=== PATIENT | male | born 1990 | race Caucasian/White ===

== ENCOUNTER 2021-07-04 10:25 | Emergency (ER) | payer OTHER, SELFPAY ==
[2021-07-04 10:29] VITALS: BP 125/85; PULSE 100; RESP 18; TEMP 37.1; O2SAT 99; BMI 24.3
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
== END 2021-07-04 11:51 | disposition home or self-care (01) ==
PROVIDERS: Emergency Provider Emergency Medicine Emergency Medical Services; PCP Internal Medicine
DX: S80.01XA Contusion of right knee, initial encounter (principal); M54.50 Low back pain, unspecified; V43.52XA Car driver injured in collision with other type car in traffic accident, initial encounter; Y93.9 Activity, unspecified; Y92.410 Unspecified street and highway as the place of occurrence of the external cause; Y99.9 Unspecified external cause status
CPT/HCPCS: 99283

== ENCOUNTER 2022-03-17 15:00 | Outpatient (RCR) | payer OTHER, SELFPAY | END 2022-03-24 18:11 | disposition home or self-care (01) | LOC: HO.PT 15:00 | PROVIDERS: Visit Provider Orthopaedic Surgery Orthopaedic Trauma | DX: R60.0 Localized edema (principal); M25.561 Pain in right knee; Z98.890 Other specified postprocedural states | CPT/HCPCS: 97110; 97112; 97161; 97530 ==

== ENCOUNTER 2024-07-18 16:18 | Emergency (ER) | payer BC, SELFPAY ==
--- NOTE | ~2024-07-18 | XR_ITS ---
CLINICAL HISTORY: atraumatic, swelling 3 view left elbow Comparison: None Findings: No acute fracture. No dislocation. No significant arthritic changes. No erosions. No joint effusion. Soft tissue swelling/edema at the medial and posterior aspect of the visualized part of the arm and elbow. No radiopaque foreign body. IMPRESSION: 1. No acute osseous findings. 2. Medial and posterior soft tissue swelling/edema. This document has been electronically signed by: Mimi Ricci MD on 07/18/2024 18:12:47
[2024-07-18 17:17] VITALS: BP 118/67; PULSE 65; RESP 16; TEMP 36.9; O2SAT 99; BMI 23.2
--- NOTE | 2024-07-18 17:19 | ED_ITS ---
HPI - General Adult General Chief complaint: Extremity Problem Stated complaint: left arm swelling, dizziness Time Seen by Provider: 07/18/24 22:59 Source: patient Mode of arrival: ambulatory Limitations: no limitations History of Present Illness ED Provider: Dr. Parris Bradshaw HPI narrative: Patient comes to the emergency room complaining of a left elbow swelling that started today. Patient denies any injuries. Patient denies any pain. Patient states that it just looks swollen. Patient denies fever chills. Related Data Previous Rx's ?Medication ?Instructions ?Recorded ibuprofen 600 mg tablet 600 mg PO Q6H PRN pain #20 tabs 07/04/21 acetaminophen 500 mg tablet 500 mg PO Q6H PRN pain #20 tabs 07/18/24 Allergies Allergy/AdvReac Type Severity Reaction Status Date / Time ibuprofen Allergy Facial Verified 07/18/24 17:19 Swelling Review of Systems 2 Review of Systems: Constitutional : No Weight loss, No Fever, No Chills, No Night Sweats, No Fatigue, No Malaise ENT/Mouth : No Hearing loss, No Ear Pain, No Nasal Congestion, No Sinus Pain, No Hoarseness, No sore throat, No Rhinorrhea, No Swallowing Difficulty Eyes: No Eye Pain, No Swelling, No Redness, No Foreign Body, No Discharge, No Vision Changes Cardiovascular : No Chest Pain, No SOB, No Dyspnea on Exertion, No Orthopnea, No Edema, No Palpitations Respiratory : No Cough, No Sputum, No Wheezing, No Smoke Exposure, No Dyspnea Gastrointestinal : No Nausea, No Vomiting, No Diarrhea, No Constipation, No abdominal Pain, No Hematochezia, No Melena Genitourinary : no irregular bleeding, No Dysuria, No Urinary Frequency, No Hematuria, No Urinary Incontinence, No Urgency, No Flank Pain, No Urinary Flow Changes, No Hesitancy Musculoskeletal : No joint pain, complaining of left elbow swelling,No Myalgias Skin : No Skin Lesions, No rash Neuro : No Weakness, No Numbness, No Paresthesias, No Loss of Consciousness, No Dizziness, No Headache Psych : No Anxiety/Panic, No Depression, No SI/HI/AH/VH, No Social Issues, Heme/Lymph: No Bruising, No Bleeding,No Lymphadenopathy Endocrine : No Polyuria, No Polydipsia, No Temperature Intolerance [facility] Past Medical History Medical History No known health problems Social History Social History Smoked in Last 30 Days: No Use of substances other than those prescribed or required for medical reasons: No Advance Directives: No Advance Directives Information Provided: No Do you have a plan to hurt others: No Plan Physical Exam ED Vital Signs: Vital Signs - 24 hr 07/18/24 17:17 07/18/24 20:29 07/18/24 21:31 Temperature 98.4 F 98.1 F 98.6 F Pulse Rate 65 64 71 Respiratory Rate 16 16 16 Blood Pressure 118/67 112/61 107/64 Pulse Oximetry 99 98 99 Oxygen Delivery Method Room Air Room Air Room Air BMI result Body Mass Index 23.2 Const Other: Appearance: Alert. Oriented X3. No acute distress. Eyes: Pupils equal, round and reactive to light. ENT: Pharynx normal. Neck: Normal inspection. Neck supple. No lymph nodes noted. No crepitus CVS: Normal heart rate and rhythm. Pulses normal. Normal S1 and S2 Respiratory: No respiratory distress. Breath sounds normal. No Wheezing. No rales Abdomen: Soft and nontender. No rigidity. No distention. Skin: Skin warm and dry. Normal skin color. Normal skin turgor. Extremities: No lower extremity edema. No Lacerations. No Rash. No needle track liriano. Patient's elbow is swollen, nontender to palpation. There is no swelling around the hand wrist or forearm. No pain. Joint effusion in the left elbow. No pain to palpation, patient is able to flex and extend the arm/ elbow with normal range of motion and without any pain. There is no pain to palpation over the bicipital area. No shoulder pain. No erythema, no warmth Neuro: Oriented X 3. No motor deficit. No sensory deficit. Moving all extremities. No slurred speech. CN 2 through 12 grossly intact Psych: calm, cooperative, normal affect Course Course Course Narrative: This is an RME: Additional HPI, ROS, PE not included below will be deferred to primary provider. RME assessment and note performed by: Greer Martin PA-C This is a 34-year-old male who presents emergency department with complaints of atraumatic left arm swelling. Patient reports tightness sensation in his left arm, swelling appears to be primarily around left elbow > no erythema or warmth. Full ROM. Plan: X-ray, basic labs, further ER evaluation needed. Medical Decision Making Medical Decision Making [facility] Narrative: my interpretation of labs: Normal hematology and chemistry. X-ray does not show any dislocation or fracture. On physical exam, patient does have a small joint effusion. However, patient has no pain to palpation or with passive / active Flexion and extension Of the elbow, normal range of motion. 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 patient likely has a nonseptic joint effusion Differential Diagnosis Differential Diagnoses: The differential diagnosis associated with the presentation includes ( , joint effusion, Bursitis, arthritis, tendonitis, septic joint considered) Lab Data [facility] Lab Attestation statement: I reviewed the patient's lab results. 07/18/24 17:44 07/18/24 17:44 Labs: Lab Results 07/18/24 Range/Units 17:44 WBC 5.7 (4.8-10.8) X10*3/uL RBC 4.73 (4.60-5.80) X10*6/uL Hgb 14.8 (14.0-18.0) g/dl Hct 42.3 (42.0-52.0) % MCV 89.4 (80.0-98.0) fL MCH 31.3 (27.0-33.0) pg MCHC 35.0 (31.0-36.0) g/dl RDW 11.9 (11.0-16.0) % Plt Count 233 (160-400) X10*3/uL MPV 9.1 L (9.4-12.4) fL Immature Gran % (Auto) 0.2 (0.0-0.4) % Neut % (Auto) 64.8 (45-73) % Lymph % (Auto) 26.2 (20-40) % Creek % (Auto) 5.6 (2-11) % Eos % (Auto) 2.5 (0-4) % Baso % (Auto) 0.7 (0-2) % Lymph # (Auto) 1.5 (1.2-4.9) X10*3/uL Creek # (Auto) 0.3 (0.1-1.2) X10*3/uL Eos # (Auto) 0.1 (0.0-0.4) X10*3/uL Baso # (Auto) 0.0 (0.0-0.2) X10*3/uL Abs Immat Gran (auto) 0.01 (0.00-0.03) X10*3/uL Absolute Neuts (auto) 3.7 (2.0-8.3) x10*3/uL Absolute Nucleated RBC 0.000 (0.0-0.012) X10*3/uL Nucleated RBC % (auto) 0.0 (0.0-0.2) /100WBC Sodium 142 (135-145) mmol/L Potassium 3.7 (3.3-5.1) mmol/L Chloride 106 (96-108) mmol/L Carbon Dioxide 28 (22-29) mmol/L Anion Gap 12 (12-20) BUN 15 (9-16) mg/dL Creatinine 0.94 (0.5-1.4) mg/dL Estim Creat Clear Calc 108.1 Estimated GFR > 60 Random Glucose 104 (60-115) mg/dL Calcium 9.4 (8.4-10.2) mg/dL Total Bilirubin 0.3 (0.0-1.0) mg/dL AST 294 H (5-37) U/L ALT 207 H (0-40) U/L Alkaline Phosphatase 89 (39-117) U/L Total Protein 7.6 (6.5-8.0) g/dL Albumin 4.3 (3.5-5.0) g/dL Independent Interpretation I performed an independent interpretation of an: Plain X-Ray Radiology Impression Discussion of test interpretation with radiology: I have reviewed the radiologist's reading. Radiologist Impression: No acute fracture. No dislocation. No significant arthritic changes. No erosions. No joint effusion. Soft tissue swelling/edema at the medial and posterior aspect of the visualized part of the arm and elbow. No radiopaque foreign body. IMPRESSION: 1. No acute osseous findings. 2. Medial and posterior soft tissue swelling/edema. Discharge Plan Discharge Clinical Impression: Joint effusion of elbow Patient Disposition: Home, Self-Care Instructions: Swollen Joint (ED) Additional Instructions: Please follow-up with your primary care physician tomorrow. If you have any worsening or new symptoms, please return to the emergency room or call 911 Prescriptions: New acetaminophen 500 mg tablet 500 mg PO Q6H PRN (Reason: pain) Qty: 20 0RF No Action ibuprofen 600 mg tablet 600 mg PO Q6H PRN (Reason: pain) Qty: 20 0RF Stand Alone Forms: Work/School Release Print Language: Greek
[2024-07-18 17:49] LABS: MANUAL DIFF FLAG NO
[2024-07-18 17:51] LABS: Basophils Percent Auto 0.7 % (0-2); Eosinophils Absolute Auto 0.1 X10*3/uL (0.0-0.4); Eosinophils Percent Auto 2.5 % (0-4); Hematocrit 42.3 % (42.0-52.0); Hemoglobin 14.8 g/dl (14.0-18.0); Imm Gran Abs Auto 0.01 X10*3/uL (0.00-0.03); Imm Gran Pct Auto 0.2 % (0.0-0.4); Lymphocytes Absolute Auto 1.5 X10*3/uL (1.2-4.9); Lymphocytes Percent Auto 26.2 % (20-40); Mean Corpuscular Hemoglobin 31.3 pg (27.0-33.0); Mean Corpuscular Volume 89.4 fL (80.0-98.0); Mean Platelet Volume 9.1 fL (9.4-12.4); Monocytes Absolute Auto 0.3 X10*3/uL (0.1-1.2); Monocytes Percent Auto 5.6 % (2-11); Neutrophils Absolute Auto 3.7 x10*3/uL (2.0-8.3); Neutrophils Percent Auto 64.8 % (45-73); Platelet Count 233 X10*3/uL (160-400); Red Blood Count 4.73 X10*6/uL (4.60-5.80); Red Cell Distribution Width 11.9 % (11.0-16.0); White Blood Count 5.7 X10*3/uL (4.8-10.8)
[2024-07-18 18:07] LABS: Alanine Aminotransferase 207 U/L (0-40); Albumin Level 4.3 g/dL (3.5-5.0); Alkaline Phosphatase 89 U/L (39-117); Anion Gap 12 (12-20); Aspartate Amino Transferase 294 U/L (5-37); Bilirubin Total 0.3 mg/dL (0.0-1.0); Blood Urea Nitrogen 15 mg/dL (9-16); Calcium 9.4 mg/dL (8.4-10.2); Carbon Dioxide 28 mmol/L (22-29); Chloride 106 mmol/L (96-108); Creatinine Clr Calc Pharmacy 108.1; Estimated Glomerular Filt Rate > 60; Glucose Random 104 mg/dL (60-115); Potassium 3.7 mmol/L (3.3-5.1); Sodium 142 mmol/L (135-145); Total Protein 7.6 g/dL (6.5-8.0)
[2024-07-18 20:29] VITALS: BP 112/61; PULSE 64; RESP 16; TEMP 36.7; O2SAT 98
[2024-07-18 21:31] VITALS: BP 107/64; PULSE 71; RESP 16; TEMP 37; O2SAT 99
--- OUTSIDE RECORDS SUMMARY | 2024-07-18 21:57 | XMS_ITS | Encounter Summary ---
Author Organization [facility] Address [address] [place] [address] Care Team Providers Care Play Back Operator Name Role Phone David Bragg MD Primary Care Provider [phone] Reason for Visit * Reason Comments Annual Exam Encounter Details Date Type Department Care Team ([facility] st Contact Info) Description 07/15/2024 2:00 PM EDT Office Visit Adult Medicine [facility] [address] [place] [phone] David Bragg MD [address] [place] [phone] Routine general medical examination at a health care facility (Primary Dx); Anxiety; Abnormal LFTs Social History Tobacco Use Types Packs/Day Years Used Date Smoking Tobacco: Never Smokeless Tobacco: Never Tobacco Cessation:Counseling Given: Not Answered Alcohol Use Standard Drinks/Week Comments No 0 (1 standard drink = 0.6 oz pur e alcohol) Sex and Gender Information Value Date Recorded Sex Assigned at Not on file Legal Sex Male 5:37 AM EST Gender Identity Not on file Sexual Orientation Not on file documented as of this encounter Last Filed Vital Signs Vital Sign Reading Time Taken Comments Blood Pressure 110/56 07/15/2024 1:59 PM EDT Pulse 72 07/15/2024 1:59 PM EDT Temperature 36.1 ??C (96.9 ??F) 07/15/2024 1:59 PM ED T Respiratory Rate 20 07/15/2024 1:59 PM EDT Oxygen Saturation - - Inhaled Oxygen Concentration - - Weight 71.7 kg (158 lb) 07/15/2024 1:59 PM EDT Height 172.7 cm (5' 8 ) 07/15/2024 1:59 PM EDT Body Mass Index 24.02 07/15/2024 1:59 PM EDT documented in this encounter Progress Notes * David Bragg MD - 07/15/2024 2:00 PM EDT Chief Complaint: General Physical Identifier: Ruel Hardy is a 34 y.o. male who presents for evaluation of general medical health. HPI: In for a physical exam. Patient today has many, many questions regarding his medical condition. He has questions regarding future red bumps . He has many questions regarding his health, his laboratory studies. His allergy is overall well-controlled. No other problems or concerns. ROS: Constitutional: no weakness, fever or sweats Skin:. no rashes, lesions or pruritus Eyes:. no blurred vision, pain or discharge ENT:. no mouth pain, oral bleeding, neck pain or swollen glands Respiratory: no wheezing, cough or shortness of breath Cardiovascular: no chest pain or palpitations; no orthopnea or PND GI: no nausea, vomiting or diarrhea; no rectal bleeding or dark stools : no dysuria or frequency; no nocturia or hesitancy Musculoskeletal: no joint pain, stiffness or swelling Neurologic: no fainting, seizures, tremors or blackouts; no weakness or numbness Hematologic: no excessive bleeding or bruising Endocrine: no increase in hunger, thirst or urination Past Medical History Patient Active Problem List Diagnosis Date Noted Date Diagnosed Abnormal LFTs 07/20/2023 Allergic conjunctivitis of both eyes 08/08/2019 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 Immunizations Immunization History Administered Date(s) Administered Tdap Tetanus diptheria acellular pertussis (Boostrix; Adacel) 7yo and older 07/29/2015 Health Maintenance See below for complete details Social History Social History Socioeconomic History Marital status: Single Spouse name: Not on file Number of children: Not on file Years of education: Not on file Highest education level: Not on file Occupational History Not on file Tobacco Use Smoking status: Never Smokeless tobacco: Never Substance and Sexual Activity Alcohol use: No Drug use: No Sexual activity: Not on file Comment: same girlfriend since Other Topics Concern Not on file Social History Narrative Not on file Social Determinants of Health Social Influencers of Health Food Risk: Not on file Transportation: Not on file Housing Instability: Not on file Food Access & Nutrition: Not on file Access to Healthcare: Not on file Health Literacy: Not on file Financial Risk: Not on file Social Isolation: Not on file Dependent Care: Not on file Education: Not on file Employment and Income: Not on file Living Situation: Not on file Family History Family History Problem Relation Name Age of Onset Other (Other: healthy, no meds) Mother Other (Other: no detailed info) Father smoker, drinker Active Medications Current Outpatient Medications: cetirizine (ZyrTEC) 10 mg tablet, Take 1 tablet (10 mg total) by mouth 1 (one) time each day., Disp: , Rfl: fluticasone propionate (FLONASE) 50 mcg/actuation nasal spray, 2 Sprays by Nasal route daily. (Patient not taking: Reported on 07/15/2024), Disp: , Rfl: Allergies Allergies Allergen Reactions Ibuprofen Physical Exam Visit Vitals BP 110/56 Pulse 72 Temp 36.1 ??C (96.9 ??F) (Temporal) Resp 20 @WEIGHTCHANGE@ Body mass index is 24.02 kg/m??. is in the acceptable range. In general, the patient is in no acute distress. Eyes: PAMELA. ENT: Oropharynx is benign, TMs are clear, neck without adenopathy. Lungs are clear to auscultation. Heart has a regular rhythm without murmurs, rubs or gallops. Abdominal exam: positive bowel sounds; soft, nontender and without hepatosplenomegaly. Thyroid not palpable. Carotids 2+ and equal without bruits. Normal male genitalia with notesticular masses. Rectal exam normal sphinter tone, normal prostrate and quiac negative brown stool. Extremities show no cyanosis, clubbing or edema. Neurological exam is nonfocal. Skin examination is without lesions, small area of AV malformation/francis angioma. Labs No results found for: WBC , HGB , HCT , MCV , PLT Lab Results Component Value Date ALT 23 05/23/2024 AST 17 05/23/2024 Wt Readings from Last 5 Encounters: 07/15/24 71.7 kg (158 lb) 12/11/23 67.2 kg (148 lb 2 oz) 07/20/23 71.2 kg (157 lb) 07/10/23 69.4 kg (153 lb) 01/14/22 70.8 kg (156 lb) Impression No diagnosis found. PLAN: Routine labs will be drawn. Health Maintenance:Patient presented for evaluation of general health. As part of this visit we reviewed the following issues which are considered an essential part of preventative health in this agegroup: Immunizations, we discussed Testicular Cancer Screening which includes self exam teaching Education about skin cancer Blood pressure screening yearly Cholesterol screening at least every 5 years, I ordered Infectious Disease Prevention which may include Chlamydia, Gonnorhea, Syphillis, HIV, Hepatitis C and TB testing Eye exam for glaucoma every 2-4 years in this age group Alcohol and substance abuse counseling Nutritional and Exercise Counseling Injury Prevention including water safety, fire prevention, smoke alarms, helmet use body piercing Seat Belt usage In addition to complete physical examination we discussed the following A from my discussion with the patient he appears to have anxiety issues. We had good discussion, wediscussed potentially a little bit of SSRI. While I encouraged patient's participation in his own care, I want the patient to channel anxiety to concrete steps to maintain his health, active lifestyle, dietary restriction. I discussed the patient's recent favorable laboratory results. B patient has many questions regarding his laboratory studies. It was very mild, isolated without any symptoms. Virological evaluation unremarkable. We discussed risk factor modification in general terms. I will repeat liver function test David Bragg MD documented in this encounter Plan of Treatment Upcoming Encounters Date Type Department Care Team (Late st Contact Info) Description 02/05/2025 1:00 PM EDT Office Visit Adult Medicine [facility] [address] [place] [phone] David Bragg MD [address] [place] [id number] Scheduled Orders Name Type Priority Associated Diagnoses Orde r Schedule Comprehensive metabolic panel Lab Routine Routine general medical examination at a health care facility Abnormal LFTs 1 Occurrences starting 07/15/2024 until 07/15/2025 CBC and differential Lab Routine Routine general medical examination at a health care facility 1 Occurrences starting 07/15/2024 until 07/15/2025 Thyroid stimulating hormone with reflex to free t4 and free t3 Lab Routine Routine general medical examination at [facility] 1 Occurrences starting 07/15/2024 until 07/15/2025 documented as of this encounter Visit Diagnoses Diagnosis Routine general medical examination at a [facility] care facility- Primary Anxiety Anxiety state, unspecified Abnormal LFTs documented in this encounter Care Teams Play Back Operator Relationship Specialty Start Date End Date David Bragg MD [address] [place] [phone] PCP - General Internal Medicine 02/19/14 documented as of this encounter
--- OUTSIDE RECORDS SUMMARY | 2024-07-18 21:58 | XMS_ITS | Clinical Summary ---
Author Organization [address] Address [address] [place] [address] Phone Care Team Providers Care Medical Oncologist Name Role Phone David Bragg MD Primary Care Provider [phone] Allergies Active Allergy Reactions Criticality Noted Date Comments Ibuprofen 07/10/2023 Medications cetirizine (ZyrTEC) 10 mg tablet Take 1 tablet (10 mg total) by mouth 1 (one) time each day. 01/30/2024 Active fluticasone propionate (FLONASE) 50 mcg/actuation nasal spray 2 Sprays by Nasal route daily. 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 Perennial allergic rhinitis 08/08/2019 ADHD (attention deficit hyperactivity disorder) 03/21/2014 Learning disability 03/21/2014 Encounters Date Type Department Care Team Description 07/15/2024 2:00 PM EDT Office Visit Adult Medicine [address] [phone] David Bragg MD Routine general medical examination at a health care facility (Primary Dx); Anxiety; Abnormal LFTs from Last 3 Months Immunizations Name Administration Dates Next Due Tdap Tetanus diptheria acell ular pertussis (Boostrix; Adacel) 7yo and older 07/29/2015 Surgical History Surgery Date Site/Laterality Comments OTHER SURGICAL HISTORY PROCEDURE: DENIES PREVIOUS SURGERY Medical History Medical History Date Comments ADHD (attention deficit hype ractivity disorder) 03/21/2014 DX:ADHD (attention deficit hyperactivity disorder) Learning disability 03/21/2014 DX:Learning disability Family History Medical History Relation Name Comments Other: no detailed info Father smok er, drinker Other: healthy, no meds Mother Relation Name Status Comments Father Alive Mother Alive Social History Tobacco Use Types Packs/Day Years [...] on file Sexual Orientation Not on file Obstetrics History Last Filed Vital Signs Vital Sign Reading [...] Mass Index 24.02 07/15/2024 1:59 PM EDT Plan of Treatment Upcoming Encounters Date Type Department Care Team (Late st Contact Info) Description 02/05/2025 1:00 PM EDT Office Visit Adult Medicine [address] [phone] David Bragg MD [address] [place] [phone] Health Maintenance Due Date Last Done Comments Depression Screening 04/10/2022 Social Influencers of Health Screening 04/10/2022 COVID-19 Vaccine (2023- season) 2024 Influenza Vaccine (#1) 2024 DTaP,Tdap,and Td Vaccines (9 - Td or Tdap) 07/28/2025 07/29/2015, 03/16/2007, 07/30/2003, Additional history exists Cholesterol Screening (Lipid Panel) 05/23/2029 05/23/2024, 07/10/2023 HIB Vaccines Completed 06/07/1992, 10/08, 1991, Additional history exists MMR Vaccines Completed 03/20/1995, 06/07/1992 IPV Vaccines Completed 01/11/1996, 09/07, 1991, Additional history exists Hepatitis B Vaccines Completed 10/01/1997, 08/16/1996, 01/11/1996 Meningococcal ACWY Vaccine Completed 03/16/2007 HIV Screening Completed 05/13/2019 Hepatitis C Screening Completed 07/21/2023 HPV Vaccines Aged Out No longer eligi ble based on patient's age to complete this topic Hepatitis A Vaccines Aged Out No long er eligible based on patient's age to complete this topic Meningococcal B Vacine Aged Out No lo nger eligible based on patient's age to complete this topic Pneumococcal Vaccine: Pediatrics (0 to 5 Years) and At-Risk Patients (6 to 64 Years) Aged Out No longer eligible based on patient's age to complete this topic RSV Immunization Patients Under 20 months Aged Out No longer eligible based on patient's age to complete this topic Varicella Vaccines Aged Out No longer eligible based on patient's age to complete this topic Procedures Procedure Name Priority Date/Time Associated Diagnosis Comments ASPARTATE AMINOTRANSFERASE Routine 05/23/2024 12:14 PM EST Hypouricemia Hyperlipemia LIPID PANEL WITH REFLEX TO DIRECT LDL Routine 05/23/2024 12:14 PM EST Hypouricemia Hyperlipemia ALANINE AMINOTRANSFERASE Routine 025 12:14 PM EST Hypouricemia Hyperlipemia HEPATITIS C SCREENING Routine 07/21/2023 HIV SCREENING Routine 05/13/2019 from Last 3 Months or Most Recently Relevant to Health Maintenance Results * Lipid panel with reflex to direct LDL (05/23/2024 12:14 PM EST) Cholesterol 138 0 - 200 mg/dL LAB CHEMISTRY METHOD 05/23/2024 5:14 PM EST [facility] Triglycerides 39 0 - 150 mg/dL LAB CHEMISTRY METHOD 05/23/2024 5:14 PM EST [facility] Comment:Results verified by repeat testing HDL 48 >=40 mg/dL LAB CHEMISTRY METHOD 05/23/2024 5:14 PM [facility] LDL Calculated 82 0 - 100 mg/dL LAB CHEMISTRY METHOD 05/23/2024 5:14 PM [facility] VLDL Cholesterol Bryce 7.8 mg/dL LAB CHEMISTRY METHOD 05/23/2024 5:14 PM EST [facility] Non HDL Chol. (LDL+VLDL) 90 <145 mg/dL LAB CHEMISTRY METHOD 05/23/2024 5:14 PM [facility] Chol/HDL Ratio 2.9 0.0 - 4.4 LAB CHEMISTRY METHOD 05/23/2024 5:14 PM [facility] Blood Venous blood specimen / Unknown Venipuncture / Unknown 05/23/2024 12:14 PM EST 05/23/2024 12:14 PM EST David Bragg MD LAB BLOOD ORDERABLES Final Resul t [facility] [address] [place] [address], [place] [phone] * Alanine aminotransferase (05/23/2024 12:14 PM EST) ALT (SGPT) 23 10 - 60 unit/L LAB CHEMISTRY METHOD 05/23/2024 4:52 PM EST [facility] Blood Venous blood specimen / Unknown Venipuncture / Unknown 05/23/2024 12:14 PM EST 05/23/2024 12:14 PM EST us David Bragg MD LAB BLOOD ORDERABLES Final Resul t [facility] [address] [place] [address], [place] [phone] * Aspartate aminotransferase (05/23/2024 12:14 PM EST) [facility] AST (SGOT) 17 10 - 42 unit/L LAB CHEMISTRY METHOD 05/23/2024 4:52 PM EST [facility] Blood Venous blood specimen / Unknown Venipuncture / Unknown 05/23/2024 12:14 PM EST 05/23/2024 12:14 PM EST David Bragg MD LAB BLOOD ORDERABLES Final Resul t [facility] [address] [place] [address], * Hepatitis C Screening (07/21/2023) Pathologist [facility] Hepatitis C Screening ABSTRACTED Historical Provider HEALTH MAINTENANCE Final Result * HIV Screening (05/13/2019) [facility] HIV Screening ABSTRACTED Historical Provider HEALTH MAINTENANCE Final Result from Last 3 Months or Most Recently Relevant to Health Maintenance Insurance [email or web address] Care Teams Medical Oncologist Relationship Specialty Start Date End Date David Bragg MD [address] [place] [phone] PCP - General Internal Medicine 02/19/14
--- OUTSIDE RECORDS SUMMARY | 2024-07-18 21:58 | XMS_ITS | Encounter Summary ---
Author Organization [facility] Address [address] [place] [phone] Phone Care Team Providers Care Pediatric Physiatrist Name Role Phone Mendy Rodriguez MD Primary Care Provider Unava ilable Encounter Details Date Type Department Care Team (Late st Contact Info) Description 12/22/2016 Conversion Encounter [facility] - [address] [phone] Social History Tobacco Use Types Packs/Day Years Used Date Smoking Tobacco: Never Assessed Sex and Gender Information Value Date Recorded Sex Assigned at Not on file Legal Sex Male 4:22 PM EDT Gender Identity Not on file Sexual Orientation Not on file documented as of this encounter Plan of Treatment Not on file documented as of this encounter Visit Diagnoses Not on filedocumented in this encounter Care Teams Pediatric Physiatrist Relationship Specialty Start Date End Date Mendy Rodriguez MD PCP - General 12/16/16 documented as of this encounter
--- OUTSIDE RECORDS SUMMARY | 2024-07-18 21:58 | XMS_ITS | Clinical Summary ---
Author Organization [facility] Address [address] [place] [phone] Phone Care Team Providers Care Education Associate Name Role Phone Mendy Rodriguez MD Primary Care Provider Unava ilable Immunizations Immunization Administration Dates Next Due DTP 01/11/1996, 3,1991,07/05,1991 Hep B, ped/adol 10/01/1997,08/16/1996,01/11/1996 Hib (PRP-T) 06/07/1992, 2,1991,05/07 IPV 10/05/1992,1991,1991 MMR 03/20/1995,06/07/1992 Meningococcal Conj (Menactra) MCV4P 03/16/2007 OPV 01/11/1996 Td (adult) (MBL), 2 Lf tetan us toxoid, PF, adsorbed 07/30/2003 Tdap 03/16/2007 Family History Relation Name Status Comments Father Alive Father: Alive a nd well Half-Sister Alive Half sister (M) : Alive and well, Alive and well Mother Alive Mother: Alive a nd well Social History Tobacco Use Types Packs/Day Years Used Date Smoking Tobacco: Never Assessed Sex and Gender Information Value Date Recorded Sex Assigned at Not on file Legal Sex Male 4:22 PM EDT Gender Identity Not on file Sexual Orientation Not on file Plan of Treatment Health Maintenance Due Date Last Done Comments Varicella Vaccines (1 of 2 - 13+ 2-dose series) 02/12/2004 DTaP,Tdap,and Td Vaccines (7 - Td or Tdap) 03/16/2017 03/16/2007, 07/30/2003, 01/11/1996, Additional history exists Influenza Vaccines (#1) 2023 COVID-19 Vaccine ( season) 2024 HIB Vaccines Completed 06/07/1992, 10/08, 1991, Additional history exists MMR Vaccines Completed 03/20/1995, 06/07/1992 IPV Vaccines Completed 01/11/1996, 09/07, 1991, Additional history exists Hepatitis B Vaccines Completed 10/01/1997, 08/16/1996, 01/11/1996 Meningococcal Vaccine Completed 03/16/2007 HPV Vaccines Aged Out No longer eligi ble based on patient's age to complete this topic Hepatitis A Vaccines Aged Out No long er eligible based on patient's age to complete this topic Men B Vaccine Aged Out No longer elig ible based on patient's age to complete this topic Pneumococcal Vaccine Aged Out No long er eligible based on patient's age to complete this topic Care Teams Education Associate Relationship Specialty Start Date End Date Mendy Rodriguez MD PCP - General 12/16/16
[2024-07-18 23:53] VITALS: BP 107/64; PULSE 71; RESP 16; TEMP 37; O2SAT 99
== END 2024-07-18 23:59 | disposition home or self-care (01) ==
PROVIDERS: Physician Assistant Medical; Emergency Provider Emergency Medicine; PCP Internal Medicine
DX: M25.422 Effusion, left elbow (principal); M25.522 Pain in left elbow
CPT/HCPCS: 36415; 73080; 80053; 85025; 99283; 99284

== ENCOUNTER → 2024-07-18 17:19 | Outpatient (BNV) | payer OTHER, SELFPAY | PROVIDERS: Visit Provider Specialist | DX: R22.42 Localized swelling, mass and lump, left lower limb (principal) | CPT/HCPCS: 73080 ==